=== PATIENT | male | born 1970 | race Caucasian/White ===

== ENCOUNTER 2020-03-17 17:55 | Inpatient (IN) | payer OTHER ==
[~2020-03-17] VITALS: Ht 177.8 cm; Wt 75.9 kg
[~2020-03-17 17:55] MED LIST: ALBU90OI61 INH; ALBUTEROL INH; CEPH500 PO; CHLO25 PO; CIPR500 PO; CYAN1000 PO; CYCL10 PO; Cleocin HCl300 MG PO; HYDACE5 PO; HYDACE5325 PO; HYDCOR1TO TOP; IBUP200 PO; IBUP800 PO; MEDICAL MARIJUANA; MILK THISTLE PO; MODERIBA PO; NAPR500 PO; Naprosyn500 MG PO; ONDA4ODT MM; OXYACE5T PO; POMEGRANATE PO; PROM25 PO; Percocet 5-3251 EACH PO; RXCLIN PO; RXNAPNA550 PO; RXOXYACE PO; SOVALDI400 MG PO; SULTRIDS PO; TIOT18 INH
[2020-03-17 18:36] LABS: BASOPHILS ABSOLUTE AUTO 0.03 K/mm3 (0.00-0.23); BASOPHILS PERCENT AUTO 0 % (0-2); EOSINOPHILS PERCENT AUTO 0 % (0-6); Hematocrit 48.7 % (37.0-53.0); Hemoglobin 16.4 g/dL (13.5-17.5); IMMATURE GRAN ABSOLUTE AUTO 0.04 K/mm3 (0.00-0.10); IMMATURE GRAN PERCENT AUTO 0 % (0-1); LYMPHOCYTES ABSOLUTE AUTO 1.76 K/mm3 (0.84-5.20); LYMPHOCYTES PERCENT AUTO 13 % (21-46); MONOCYTES ABSOLUTE AUTO 0.68 K/mm3 (0.16-1.47); MONOCYTES PERCENT AUTO 5 % (4-13); Mean Corpuscular HGB 31.8 pg (26.0-34.0); Mean Corpuscular HGB Conc 33.7 g/dL (31.5-36.5); Mean Corpuscular Volume 94 fL (80-100); Mean Platelet Volume 9.2 fL (9.1-12.4); NEUTROPHILS ABSOLUTE AUTO 11.22 K/mm3 (1.96-9.15); NEUTROPHILS PERCENT AUTO 82 % (41-73); Platelet Count 267 K/mm3 (150-400); RDW Coefficient Variation 12.1 % (11.7-14.2); RDW Standard Deviation 42.5 fL (35.1-46.3); Red Blood Cell Count 5.16 M/mm3 (4.30-5.90); White Blood Cell Count 13.73 K/mm3 (4.00-11.30)
[2020-03-17 18:54] LABS: Alanine Aminotransfer (ALT/SGP 44 U/L (12-78); Albumin, Blood 4.1 g/dL (3.4-5.0); Albumin/Globulin Ratio 1.1 (0.8-1.8); Alk Phos 60 U/L (50-136); Anion Gap 6 mmol/L (6-16); Aspartate Aminotrans (AST/SGOT 21 U/L (12-37); Bilirubin, Total 0.7 mg/dL (0.1-1.0); Blood Urea Nitrogen 10 mg/dL (8-24); Bun/Creatinine Ratio 14.8 (12.0-20.0); CO2, Blood 24 mmol/L (21-32); Chloride, Blood 107 mmol/L (98-108); Creatinine, Blood 0.67 mg/dL (0.60-1.20); Globulin, Blood 3.8 g/dL (2.2-4.0); Glomerular Filtration Rate >60 (60-); Glucose, Blood 109 mg/dL (70-99); Potassium, Blood 4.2 mmol/L (3.5-5.5); Sodium, Blood 137 mmol/L (136-145); Total Protein, Blood 7.9 g/dL (6.4-8.2)
[2020-03-17 20:43] LABS: Source, Urine Clean Catch
[2020-03-17 20:50] LABS: Appearance, Urine Clear (Clear); Bilirubin, Urine Neg (Neg); Blood, Urine 3+ (Neg); Color, Urine Yellow (P-Yellow); Glucose Qualitative, Urine Neg (Neg); Ketones, Urine 4+ (Neg); Leukocyte Esterase, Urine 1+ (Neg); Nitrite, Urine Neg (Neg); Protein, Urine 1+ (Neg); Specific Gravity, Urine 1.025 (1.003-1.022); Urobilinogen, Urine 1+ (Normal)
[2020-03-17 21:04] LABS: Bacteria Few /hpf; Squamous Epithelial Cells Few /hpf (Few); White Blood Cells, Urine 0-2 /hpf (0-5)
[2020-03-17 21:05] LABS: Mucus Light (0-Heavy)
--- NOTE | 2020-03-18 02:25 | NUR ---
RECEIVED REPORT FROM TAMIEED RN. PT TRANSPORTED TO MEDICAL FLOOR VIA GURNEY, AMBULATED SELF TO BATHROOM THEN TO THE BED. NO ACUTE DISTRESS NOTED, PT DENIES NAUSEA, STATES ABD PAIN 5/10. ORIENTED TO ROOM/UNIT, VS TAKEN, WNL. NO OTHER ACUTE NEEDS ASSESSED AT THIS TIME. CALL LIGHT, POSSESSIONS IN REACH, BED IN LOW POSITION. CONTINUE TO MONITOR.
[2020-03-18 05:45] LABS: BASOPHILS ABSOLUTE AUTO 0.02 K/mm3 (0.00-0.23); BASOPHILS PERCENT AUTO 0 % (0-2); EOSINOPHILS ABSOLUTE AUTO 0.02 K/mm3 (0.00-0.68); EOSINOPHILS PERCENT AUTO 0 % (0-6); Hematocrit 45.5 % (37.0-53.0); IMMATURE GRAN ABSOLUTE AUTO 0.03 K/mm3 (0.00-0.10); IMMATURE GRAN PERCENT AUTO 0 % (0-1); LYMPHOCYTES ABSOLUTE AUTO 2.61 K/mm3 (0.84-5.20); LYMPHOCYTES PERCENT AUTO 25 % (21-46); MONOCYTES ABSOLUTE AUTO 1.06 K/mm3 (0.16-1.47); MONOCYTES PERCENT AUTO 10 % (4-13); Mean Corpuscular HGB 31.3 pg (26.0-34.0); Mean Corpuscular Volume 95 fL (80-100); Mean Platelet Volume 9.4 fL (9.1-12.4); NEUTROPHILS ABSOLUTE AUTO 6.88 K/mm3 (1.96-9.15); NEUTROPHILS PERCENT AUTO 65 % (41-73); Platelet Count 240 K/mm3 (150-400); RDW Coefficient Variation 12.2 % (11.7-14.2); RDW Standard Deviation 42.9 fL (35.1-46.3); Red Blood Cell Count 4.79 M/mm3 (4.30-5.90); White Blood Cell Count 10.62 K/mm3 (4.00-11.30)
[2020-03-18 06:08] LABS: Anion Gap 7 mmol/L (6-16); Blood Urea Nitrogen 10 mg/dL (8-24); Bun/Creatinine Ratio 14.4 (12.0-20.0); CO2, Blood 24 mmol/L (21-32); Calcium, Blood 8.4 mg/dL (8.5-10.1); Chloride, Blood 110 mmol/L (98-108); Glomerular Filtration Rate >60 (60-); Glucose, Blood 97 mg/dL (70-99); Potassium, Blood 3.7 mmol/L (3.5-5.5); Sodium, Blood 141 mmol/L (136-145)
--- NOTE | 2020-03-18 07:25 | NUR ---
SHIFT SUMMARY PT ASLEEP, IN NO ACUTE DISTRESS. VS REVIEWED, WNL. NO C/O NAUSEA, ABD PAIN AT THIS TIME. HAS BEEN SLEEPING T/O REST OF NIGHT. APPEARS TO BE COMFORTABLE. NO ACUTE NEEDS ASSESSED AT THIS TIME. CALL LIGHT, POSSESSIONS IN REACH, BED IN LOW POSITION. REPORT GIVEN TO CAROLYNN GONZALEZ.
== END 2020-03-18 16:00 | disposition home or self-care (01) | DRG 390 ==
LOC: ER 17:55 → MEDS 17:56
PROVIDERS: Emergency Medicine; Nurse Practitioner Acute Care; ADMIT Internal Medicine
DX: K56.51 Intestinal adhesions [bands], with partial obstruction (principal); F17.210 Nicotine dependence, cigarettes, uncomplicated; Z23 Encounter for immunization
CPT/HCPCS: 36415; 74177; 80048; 80053; 81001; 83605; 83690; 85025; 87086; 93005; 93010; 96361; 96372; 96374; 96375; 99285-25; A9270; G0008; G0378; J1644; J2270; J2405; J7030; J7120; Q2038; Q9967

== ENCOUNTER 2023-02-11 12:33 | Emergency (ER) | payer OTHER ==
[~2023-02-11] VITALS: Ht 177.8 cm; Wt 68.0 kg
[2023-02-11 12:39] VITALS: BP 134/90
== END 2023-02-11 14:24 | disposition home or self-care (01) ==
LOC: ER 12:33
DX: S61.011A Laceration without foreign body of right thumb without damage to nail, initial encounter (principal); F17.210 Nicotine dependence, cigarettes, uncomplicated; Z88.0 Allergy status to penicillin; W27.4XXA Contact with kitchen utensil, initial encounter; Y99.0 Civilian activity done for income or pay
CPT/HCPCS: 90471; 90714; 99283-25